=== PATIENT | male | born 1980 | race Caucasian/White ===

== ENCOUNTER 2024-09-10 16:20 | Emergency (ER) | payer OTHER, SELFPAY ==
[2024-09-10 16:25] VITALS: BP 150/80
--- NOTE | 2024-09-10 17:38 | ED.GENMED ---
History of Present Illness
General
Chief Complaint: Musculo-Skeletal Complaint
Source: patient and police
Exam Limitations: none
Time Seen by Provider: 09/10/24 17:09
Nursing documentation reviewed up to this point in time: agreed with
History of Present Illness
History of Present Illness:
43-year-old male with diffuse muscle aches, chronic xylazine use. Recent amputation of left first and second toe at [facility] 4 days ago. Last use of xylazine was 24 hours ago.
Past History
Past History
ED Past Medical History: Psychiatric (Anxiety, depression)
ED Past Surgical History: Orthopedic (Left toe amputation 09/06/2024)
Social History
Tobacco: Smoker
Alcohol: None
Drug: Narcotics and IVDA
Review of Systems
Review of Systems
Allergies reviewed?: Yes
All Other Systems: Not applicable
Constitutional: Reports no symptoms
EENT: Reports no symptoms
Respiratory: Reports no symptoms
Cardiac: Reports no symptoms
ABD/GI: Reports nausea
: Reports no symptoms
Musculoskeletal: Reports muscle pain
Skin: Reports no symptoms
Neurological: Reports no symptoms
Endocrine: Reports no symptoms
Hematologic/Lymphatic: Reports no symptoms
Psychiatric: Reports no symptoms
Phy Exam
Physical Exam
Physical Exam:
Physical Exam
General: no apparent distress, not acutely ill
Neck: supple. no meningeal signs. normal posterior pharynx
Heart: s1/s2 regular rate and rhythm, no murmur. equal radial
pulses.
HEENT: Pupils equal round reactive to light, EOMI
Lungs: no acute respiratory distress. clear bilaterally
Abdomen: normal bowel sounds. not tender. no CVAT
Neuro: alert and oriented. no focal neurological deficits cranial nerves II through XII intact
Skin: no rash
Psychiatric: well kept. interactive and cooperative
Extremities: no edema. no calf tenderness. negative homans. good distal pulses, clean dry intact incision on left first and second toes. No drainage.
Course
Orders/Labs/Results
Orders:
Orders
09/10/24 17:38
Ketorolac [Toradol] 15 mg IM NOW STA
Ondansetron Orally Disint [Zofran Odt (Orally Disintegrating)] 4 mg PO NOW STA
Tizanidine [Zanaflex] 2 mg PO NOW STA
Vital Signs
Initial and Last Documented VS:
Initial Vital Signs
Temp Pulse Resp BP Pulse Ox
98.1 F 76 18 150/80 100
09/10/24 16:25 09/10/24 16:25 09/10/24 16:25 09/10/24 16:25 09/10/24 16:25
Last Documented Vital Signs
Temp Pulse Resp BP Pulse Ox
98.1 F 76 18 150/80 100
09/10/24 16:25 09/10/24 16:25 09/10/24 16:25 09/10/24 16:25 09/10/24 16:25
MDM/Problems Addressed
Differential Diagnosis Includes:
Xylazine withdrawal
MDM/Problems Addressed:
43-year-old male with mild xylazine withdrawal. Treat with Zanaflex, patient will follow-up with snf withdrawal protocol.
*Pulse Oximetry
Patient hypoxic: no
*Critical Care Note
Total Time (30-74mins, 75-104mins- exclusive of procedures): Not Applicable
Patient Management
Escalation/DeEscalation of care consider admission/obs:
Admit not indicated
ED Attending Note
-
Portions of this chart may have been created with voice recognition software.� Occasional wrong word or��sound alike� substitutions may have occurred due to the inherent limitations of voice recognition software.
Discharge Plan
Departure
Date of Disposition: 09/10/24
Time of Disposition: 18:06
Patient with high blood pressure during this ER visit?: Yes
Condition: Good
Interventions
Interventions:
*Risk Screen - Suicide Last Done: 09/10/24 16:25
*General Assessment Last Done: 09/10/24 16:25
*Neglect/Abuse Screening Last Done: 09/10/24 16:25
ED-Musculoskeletal Assessment Last Done: 09/10/24 17:09
Discharge Date and Time
Print Language: NEPALI
[2024-09-10] MEDS: ZANAFLEX 2 MG PO (17:52)
[2024-09-10] MEDS: TORADOL 15 MG IM (17:52)
[2024-09-10] MEDS: ZOFRAN ODT (ORALLY DISINTEGRATING) 4 MG PO (17:52)
== END 2024-09-10 18:57 ==
LOC: EMR 16:20
PROVIDERS: EMERGENCY PHYSICIAN Emergency Medicine
DX: F13.139 Sedative, hypnotic or anxiolytic abuse with withdrawal, unspecified (principal); Z48.00 Encounter for change or removal of nonsurgical wound dressing; R03.0 Elevated blood-pressure reading, without diagnosis of hypertension; F17.200 Nicotine dependence, unspecified, uncomplicated
CPT/HCPCS: 99284; 96372